=== PATIENT | male | born 1970 | race Caucasian/White ===

== ENCOUNTER 2024-01-02 17:50 | Outpatient (REF) | payer BC, SELFPAY ==
--- NOTE | ~2024-01-02 | MR_ITS ---
EXAMINATION: MR CERVICAL SPINE WITHOUT CONTRAST CLINICAL INFORMATION: Spondylosis, concern for cord compression. COMPARISON: None available. TECHNIQUE: MRI of the cervical spine was obtained using routine sequences without contrast. FINDINGS: Straightening of the normal cervical lordosis. No significant spondylolisthesis. Cervical vertebral body heights are maintained. 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 The cervical spinal cord is normal in signal. C2-C3: Trace uncovertebral spurring. The spinal canal and neural foramina are patent. C3-C4: Disc osteophyte complex indents the ventral thecal sac which is not significantly narrowed. Uncovertebral arthropathy with mild narrowing of the right neural foramen. C4-C5: Disc osteophyte complex indents the ventral thecal sac without significant spinal canal stenosis. Uncovertebral and facet arthropathy with mild narrowing of the left neural foramen. C5-C6: Disc osteophyte complex indents the ventral thecal sac with mild spinal canal stenosis. Uncovertebral and facet arthropathy with mild narrowing of the left neural foramen. C6-C7: Shallow disc osteophyte complex without significant spinal canal stenosis. The neural foramina are not significantly narrowed. C7-T1: Trace central disc protrusion. The spinal canal and neural foramina are patent. At T2-T3 there is a right central disc protrusion that indents the ventral thecal sac without significant spinal canal stenosis. The neural foramina are patent. Mildly prominent left level II-A lymph node may be reactive. Nonspecific prominence of the lingual tonsils. Subcentimeter T2 hyperintense left thyroid nodule for which no imaging follow-up is recommended per size criteria. MR/MR cervical spine wo con IMPRESSION: Mild multilevel degenerative changes as described above. No high-grade spinal canal or neural foraminal stenosis. Prominence of the lingual tonsils with mildly prominent left upper cervical lymph nodes. Finding is indeterminate and may be reactive. Clinical correlation/direct visualization is recommended.
== END 2024-01-02 17:51 | disposition home or self-care (01) ==
LOC: HO.MRI 17:50
PROVIDERS: PCP Internal Medicine; Visit Provider Psychiatry & Neurology Neurology
DX: M47.12 Other spondylosis with myelopathy, cervical region (principal)
CPT/HCPCS: 72141